=== PATIENT | female | born 1995 | race Two or more races ===

== ENCOUNTER 2016-12-29 00:45 | Emergency (ER) | payer BC ==
[~2016-12-29] VITALS: Ht 167.6 cm; Wt 81.3 kg
[2016-12-29 00:47] VITALS: BP 149/103
[2016-12-29] MEDS ORDERED: DEXAMETHASONE 4 MG/ML, 5ML ONE (01:19)
[2016-12-29] MEDS ORDERED: DEXAMETHASONE 4 MG/ML, 1ML IM SCH (01:30)
== END 2016-12-29 01:38 | disposition home or self-care (01) ==
LOC: ED 01:31
DX: L20.84 Intrinsic (allergic) eczema (principal); J03.80 Acute tonsillitis due to other specified organisms
CPT/HCPCS: 93005; 96372; 99283; J1100